=== PATIENT | male | born 1990 | race Asian ===

== ENCOUNTER 2020-12-11 15:13 | Inpatient (IN) | payer OTHER ==
[2020-12-11 16:04] VITALS: BMI 44.5
[2020-12-11] MEDS ORDERED: MAGNESIUM CITRATE 300 ML BOTTLE PO PRN (17:49)
[2020-12-11] MEDS ORDERED: MAGNESIUM HYDROX 2400MG/30ML ORAL SUSPENSION 30 ML CUP PO PRN (17:49)
[2020-12-11] MEDS ORDERED: chlordiazePOXIDE HCL 25 MG CAPSULE PO PRN (17:49)
[2020-12-11] MEDS ORDERED: IBUPROFEN 400 MG TABLET (FP) PO PRN (17:49)
[2020-12-11] MEDS ORDERED: METHOCARBAMOL 500 MG TABLET PO PRN (17:49)
[2020-12-11] MEDS ORDERED: MAG HYDROX/AL HYDROX/SIMETH 30 ML UNIT-DOSE CUP PO PRN (17:49)
[2020-12-11] MEDS ORDERED: BISMUTH SUBSALICYLATE 524 MG/30 ML UD PO PRN (17:49)
[2020-12-11] MEDS ORDERED: ONDANSETRON *ODT* 4 MG TABLET SL PRN (17:49)
[2020-12-11] MEDS ORDERED: ACETAMINOPHEN 325 MG TABLET (FP) PO PRN ×2 (17:49)
[2020-12-11] MEDS ORDERED: MENTHOL/PHENOL 1 EACH UD MM PRN (17:49)
[2020-12-11] MEDS ORDERED: chlordiazePOXIDE HCL 25 MG CAPSULE ONE (18:50)
[2020-12-11] MEDS ORDERED: ACETAMINOPHEN 325 MG TABLET (FP) ONE (18:50)
[2020-12-11] MEDS ORDERED: hydrOXYzine PAMOATE 25 MG CAPSULE (FP) PO ONE (18:50)
[2020-12-11] MEDS: hydrOXYzine PAMOATE 25 MG CAPSULE (FP) PO SCH ×2 (18:59→23:25)
[2020-12-11] MEDS: MELATONIN 5 MG TABLETS PO SCH (23:25)
[2020-12-11] MEDS: THIAMINE HCL 100 MG TABLET (FP) PO SCH (23:25)
[2020-12-11] MEDS: BACITRACIN 0.9 GM PACKET TP SCH (23:26)
[2020-12-11] MEDS: chlordiazePOXIDE HCL 25 MG CAPSULE PO SCH (23:41)
[2020-12-12] MEDS: hydrOXYzine PAMOATE 25 MG CAPSULE (FP) PO SCH ×5 (06:26→23:29)
[2020-12-12] MEDS: chlordiazePOXIDE HCL 25 MG CAPSULE PO SCH ×4 (06:26→23:29)
[2020-12-12] MEDS: PRENATAL VITAMINS W/ FOLIC ACID TABLET (FP) PO SCH (10:24)
[2020-12-12] MEDS: BACITRACIN 0.9 GM PACKET TP SCH ×2 (10:24→23:29)
[2020-12-12] MEDS: NICOTINE POLACRILEX 2 MG GUM BUC PRN ×2 (10:25→18:43)
[2020-12-12 11:46] LABS: POTASSIUM 4.1 mmol/L (3.5-5.1)
[2020-12-12 11:48] LABS: HEMATOCRIT 45.8 % (35.4-49); HEMOGLOBIN 15.6 GM/dL (11.7-16.9); MCH 30.6 pg (25.7-33.7); MEAN CELL VOLUME 89.9 fl (80-96); MEAN PLT VOLUME 8.5 fl (7.5-11.1); PLATELET COUNT 206 K/MM3 (134-434); RBC 5.09 M/mm3 (4.00-5.60); RDW 13.5 % (11.9-15.9); WHITE BLOOD COUNT 3.6 K/mm3 (4.0-10.0)
[2020-12-12 11:53] LABS: ALBUMIN 3.7 g/dl (3.4-5.0); BLOOD UREA NITROGEN 9.1 mg/dL (7-18); CALCIUM 9.2 mg/dL (8.5-10.1)
[2020-12-12 11:56] LABS: CREATININE 0.8 mg/dL (0.55-1.3)
[2020-12-12 11:58] LABS: BILIRUBIN,TOTAL 1.4 mg/dL (0.2-1); TOT PROT 6.8 g/dl (6.4-8.2)
[2020-12-12] MEDS: THIAMINE HCL 100 MG TABLET (FP) PO SCH (23:29)
[2020-12-12] MEDS: MELATONIN 5 MG TABLETS PO SCH (23:29)
[2020-12-13] MEDS: chlordiazePOXIDE HCL 25 MG CAPSULE PO SCH ×4 (07:27→23:51)
[2020-12-13] MEDS: hydrOXYzine PAMOATE 25 MG CAPSULE (FP) PO SCH ×5 (07:28→23:51)
[2020-12-13] MEDS: BACITRACIN 0.9 GM PACKET TP SCH ×2 (10:40→23:51)
[2020-12-13] MEDS: PRENATAL VITAMINS W/ FOLIC ACID TABLET (FP) PO SCH (10:42)
[2020-12-13] MEDS: MELATONIN 5 MG TABLETS PO SCH (23:51)
[2020-12-13] MEDS: THIAMINE HCL 100 MG TABLET (FP) PO SCH (23:52)
[2020-12-14] MEDS ORDERED: chlordiazePOXIDE HCL 10 MG CAPSULE PO PRN
[2020-12-14] MEDS: hydrOXYzine PAMOATE 25 MG CAPSULE (FP) PO SCH ×5 (06:20→22:35)
[2020-12-14] MEDS: chlordiazePOXIDE HCL 10 MG CAPSULE PO SCH ×4 (06:21→22:35)
[2020-12-14] MEDS: BACITRACIN 0.9 GM PACKET TP SCH ×2 (10:24→23:19)
[2020-12-14] MEDS: PRENATAL VITAMINS W/ FOLIC ACID TABLET (FP) PO SCH (10:25)
[2020-12-14] MEDS: THIAMINE HCL 100 MG TABLET (FP) PO SCH (22:35)
[2020-12-14] MEDS: MELATONIN 5 MG TABLETS PO SCH (22:35)
[2020-12-15] MEDS: hydrOXYzine PAMOATE 25 MG CAPSULE (FP) PO SCH ×5 (05:48→22:17)
[2020-12-15] MEDS: chlordiazePOXIDE HCL 10 MG CAPSULE PO SCH ×2 (05:53→17:50)
[2020-12-15] MEDS: BACITRACIN 0.9 GM PACKET TP SCH ×2 (10:16→22:18)
[2020-12-15] MEDS: PRENATAL VITAMINS W/ FOLIC ACID TABLET (FP) PO SCH (10:17)
[2020-12-15] MEDS ORDERED: LURASIDONE HCL 20 MG TABLET PO ONE (12:30)
[2020-12-15] MEDS: THIAMINE HCL 100 MG TABLET (FP) PO SCH (22:17)
[2020-12-15] MEDS: MELATONIN 5 MG TABLETS PO SCH (22:17)
[2020-12-16] MEDS ORDERED: chlordiazePOXIDE HCL 10 MG CAPSULE PO ONE (05:00)
[2020-12-16] MEDS: hydrOXYzine PAMOATE 25 MG CAPSULE (FP) PO SCH (05:28)
[2020-12-16 06:41] VITALS: BP 121/84; PULSE 75; TEMP 97.1
[2020-12-16] MEDS: NICOTINE POLACRILEX 2 MG GUM BUC PRN (08:53)
[2020-12-16] MEDS ORDERED: LURASIDONE HCL 20 MG TABLET PO SCH (10:00)
== END 2020-12-16 09:13 | disposition home or self-care (01) | DRG 774 ==
LOC: YASAS 15:13 → Y6N 19:53
PROVIDERS: ADMIT Allergy & Immunology; ATTEND Allergy & Immunology
PROC: HZ2ZZZZ Detoxification Services for Substance Abuse Treatment (ICD-10-PCS; principal; 2020-12-11)
DX: F10.230 Alcohol dependence with withdrawal, uncomplicated (principal); F14.20 Cocaine dependence, uncomplicated; F17.210 Nicotine dependence, cigarettes, uncomplicated; F20.9 Schizophrenia, unspecified; F29 Unspecified psychosis not due to a substance or known physiological condition; F51.05 Insomnia due to other mental disorder; I10 Essential (primary) hypertension; Z59.0 Homelessness
CPT/HCPCS: 36415; 71046-TC-FY; 80053; 85027; 86780; 93005; 93010; C9803; U0003; U0005